=== PATIENT | female | born 1955 | race Caucasian/White ===

== ENCOUNTER 2022-06-27 09:51 | Emergency (ER) | payer OTHER, SELFPAY ==
[2022-06-27 09:52] VITALS: BP 145/106; PULSE 116; RESP 16; TEMP 35.5; O2SAT 95; BMI 42.0
--- NOTE | 2022-06-27 10:19 | EKG12_ITS ---
Test Reason : PALP Blood Pressure : / mmHG Vent. Rate : 128 BPM Atrial Rate : 000 BPM P-R Int : 000 ms QRS Dur : 088 ms QT Int : 326 ms P-R-T Axes : 000 041 -62 degrees QTc Int : 475 ms Atrial fibrillation with rapid ventricular response ST & T wave abnormality, consider inferior ischemia ST & T wave abnormality, consider anterior ischemia Abnormal ECG Confirmed by VICK ANNE, MICHAEL ([id number]), managing editor EVANS MACE ([id number]) on 06/28/2022 10:47:26 AM Referred By: Confirmed By:MICHAEL HICKMAN MD
--- NOTE | 2022-06-27 10:23 | EDS_ITS ---
HPI History of Present Illness Chief Complaint: Palpitations Informant: patient Narrative Narrative: See three 7-year-old female presenting to the emergency department with palpitations. She states that she received an alert from her Fitbit/phone that she was in atrial fibrillation with a rapid heart rate. She states that she feels weaker than normal. She denies any chest pain. Earlier this spring while visiting in [place] she was diagnosed with SVT and was given adenosine in the emergency department. She subsequently followed up with [place] [facility] and reportedly had an echocardiogram that was negative. She states she has not had any cardiac symptoms since that time. She notes that she has a history of hypothyroidism and is on Synthroid and also takes atenolol. Per chart biopsy she is also on Xarelto but she does not believe she is taking this or knows why that would be in her chart. PFSH [facility] Home Medications ascorbic acid (vitamin C) 500 mg tablet (Vitamin C) 500 mg PO DAILY@0800 08/21/14 [History Last Taken Unknown] atenolol 50 mg tablet 50 mg PO DAILY 08/21/14 [History Last Taken 09/27/14 07:00] biotin 5 mg capsule 5 mg PO DAILY 08/21/14 [History Last Taken Unknown] calcium citrate 200 mg calcium-vitamin D3 6.25 mcg (250 unit) tablet 1 ea PO DAILY 08/21/14 [History Last Taken Unknown] cyanocobalamin (vitamin B-12) 500 mcg disintegrating tablet,sublingual 500 mcg sublingual DAILY 08/21/14 [History Last Taken Unknown] ergocalciferol (vitamin D2) 1,250 mcg (50,000 unit) capsule (Vitamin D2) 50,000 unit PO 08/21/14 [History Last Taken Unknown] gabapentin 600 mg tablet 600 mg PO TIDCM 08/21/14 [History Last Taken Unknown] levothyroxine 75 mcg tablet (Levoxyl) 75 mcg PO DAILY 08/21/14 [History Last Taken Unknown] multivitamin with folic acid 400 mcg tablet (Thera) 1 tab PO DAILY 08/21/14 [History Last Taken Unknown] Allergy/AdvReac Type Severity Reaction Status Date / Time ciprofloxacin [From Cipro] Allergy Rash Verified 06/27/22 09:52 Social History (Updated 06/27/22 @ 10:[address] Ming Mariscal, DO) Smoking Status: Former smoker substance use type: does not use ROS ROS ED ROS Narrative Generalized weakness Constitutional Constitutional ED: Denies chills or weight loss Eyes Eyes: Denies change in vision or diplopia ENT ENT ED: Denies ear pain, rhinorrhea or sore throat Cardiovascular Cardiovascular: Reports palpitations; Denies chest pain, orthopnea or racing heartbeat Respiratory/Chest Respiratory/Chest: Denies cough, dyspnea or orthopnea Gastrointestinal Gastrointestinal: Denies abdominal pain, diarrhea, nausea or vomiting Genitourinary Genitourinary ED: Denies dysuria, hematuria or urinary frequency Musculoskeletal Musculoskeletal: Denies arthralgias or myalgias Integumentary Denies abscess or rash Neurologic Neurologic: Denies headache(s) or weakness Psychiatric Psychiatric: Denies anxiety, depression, suicidal ideation or suicidal thoughts Endocrine Endocrinology: Denies polydipsia, polyphagia or polyuria Allergic/Immunologic Allergic/Immunologic ED: Denies mouth swelling, tongue swelling or urticaria EXAM Physical Exam Const Vital Signs: 06/27/22 09:52 06/27/22 10:43 06/27/22 10:43 Temperature 96 F L Temperature Source Temporal Pulse Rate 116 H 93 Respiratory Rate 16 19 H Respiratory Effort Short of Breath Blood Pressure 145/106 H 137/88 H Blood Pressure Mean 119 104 Pulse Ox 95 95 Oxygen Delivery Method Room Air Room Air Positive well nourished and well developed General Appearance ED: well developed HEENT Reports normocephalic, head/scalp atraumatic and moist mucous membranes Eyes PERRL and EOMs intact bilaterally Neck no lymphadenopathy, supple and no JVD Resp normal respiratory effort and clear to auscultation bilaterally Cardio no murmurs Rate: tachycardic Rhythm: abnormal rhythm irregularly irregular GI normal to inspection, nondistended, normoactive bowel sounds and non-tender Palpation: soft Back/Spine no CVA tenderness and normal ROM Extremity normal to inspection General Extremety ED: Negative for edema General Extremity: Negative for edema Neuro oriented x3 and CN's II-XII intact bilaterally Sensorium / Orientation: alert Motor Exam: strength 5/5 throughout Psych mental status grossly normal Mood & Affect: Negative for depressed or tearful Skin no rashes or lesions noted and no wounds MDM MDM MDM Narrative Medical decision making narrative: Basic blood work was obtained. White count 10.4 with a hemoglobin 12.6 and platelet count of 246. Coags were normal. Troponin is 5 TSH 0.73. Magnesium 2.1 with a potassium of 3.9. My interpretation of the chest x-ray is no acute process. Patient received a dose of Lovenox aspirin as well as diltiazem. Patient's current heart rate is in the 80s and is normotensive. She remains in a atrial fibrillation rhythm but rate controlled. I spoke with our on-call merchant [employer] utility worker Dr. Gage. Patient will be seen in the office at 1445 hrs. today. It is approximately 2 and half hours from now. Patient is comfortable with this plan. Lab Data Attestation: I reviewed the patient's lab results. Labs: Laboratory Results - last 24 hr 06/27/22 06/27/22 06/27/22 10:00 10:00 10:00 WBC 10.4 RBC 4.55 Hgb 12.6 Hct 38.6 MCV 84.8 MCH 27.7 MCHC 32.6 RDW Std Deviation 45.7 H RDW Coeff of Wolfgang 14.9 H Plt Count 246 MPV 10.5 Immature Gran % (Auto) 0.400 Neut % (Auto) 73.9 H Lymph % (Auto) 15.7 L [place] % (Auto) 7.8 Eos % (Auto) 1.7 Baso % (Auto) 0.5 Absolute Neuts (auto) 7.6 Absolute Lymphs (auto) 1.63 Nucleated RBC % 0 PT 13.9 INR 1.1 APTT 26.9 Sodium 138 Potassium 3.9 Chloride 106 Carbon Dioxide 26.0 Anion Gap 6 BUN 13 Creatinine 0.91 Estim Creat Clear Calc 65.76 Est GFR (MDRD) Af Amer 79 Est GFR (MDRD) Non-Af 66 BUN/Creatinine Ratio 14.3 Glucose 127 H Calcium 9.2 Magnesium 2.1 Total Bilirubin 0.90 AST 17 ALT 16 Alkaline Phosphatase 117 Troponin I High Sens 5 Total Protein 8.2 Albumin 3.5 Globulin 4.7 H Albumin/Globulin Ratio 0.7 L TSH 0.73 Radiography Diagnostic Testing: Clinical Impression(s) from Imaging Studies Chest X-Ray 06/27/22 10:30 IMPRESSION: Diffuse patchy infiltrates right lung. Electronically Signed: Isaias Pozo MD, GAB at 10:41 EDT , EKG Initial EKG: Attestation: I personally reviewed and interpreted this EKG as follows: Comments: Atrial fibrillation with rapid ventricular response at a rate of 128 bpm Discharge Plan Triage Chief Complaint: Palpitations ED Provider: Ming Mariscal Dx/Rx/DC Orders Clinical Impression: New onset atrial fibrillation, Hypertension, Hypothyroidism Instructions: ED AFIB Prescriptions: No Action gabapentin 600 MG tablet 600 mg PO TIDCM Label Comments: nerve pain biotin 5 MG capsule 5 mg PO DAILY Label Comments: supplement levothyroxine [Levoxyl] 75 MCG tablet 75 mcg PO DAILY Label Comments: thyroid med ascorbic acid (vitamin C) [Vitamin C] 500 MG tablet 500 mg PO DAILY@0800 Label Comments: supplement ergocalciferol (vitamin D2) [Vitamin D2] 50,000 UNIT capsule 50,000 unit PO TUWE Label Comments: supplement atenolol 50 MG tablet 50 mg PO DAILY Label Comments: high blood pressure calcium citrate-vitamin D3 1 EACH tablet 1 ea PO DAILY Label Comments: supplement multivitamin with folic acid [Thera] 1 TABLET tablet 1 tab PO DAILY Label Comments: supplement cyanocobalamin (vitamin B-12) 500 MCG tablet,disintegrating 500 mcg sublingual DAILY Label Comments: supplement Primary Care Provider: Raquel June Referrals: Ben Gage MD [Med Staff - Active Staff] - As soon as possible (Today at 1445 hrs. you have an appointment with cardiology) Francesco Lovelace MD [Non-Staff] - Disposition Disposition: Home, Self Care
--- NOTE | 2022-06-27 10:30 | RAD_ITS ---
STUDY: X-RAY CHEST REASON FOR EXAM: Female, 67 years old. palpitations TECHNIQUE: PA or AP. COMPARISON: 08/21/2014. FINDINGS: Previously visualized focal right middle lobe infiltrate has resolved. There is now diffuse patchy infiltrate throughout the right lung. Left lung is clear. There is no demonstrated pleural abnormality. Normal size heart. Normal mediastinum and amanda. Normal visualized pulmonary arteries. Atherosclerotic vascular calcification of aortic arch. Tortuous descending aorta. Normal visualized thoracic spine. Normal visualized ribs, clavicles, and shoulders. There is no demonstrated abnormality of the visualized soft tissue structures of the upper abdomen. RAD/Chest 1 View (Portable) IMPRESSION: Diffuse patchy infiltrates right lung. Electronically Signed: Isaias Pozo MD, GAB at 10:41 EDT ,
[2022-06-27 10:31] LABS: Absolute Lymphocyte Count 1.63 X10^3/uL (0.83-4.51); Absolute Neutrophil Count 7.6 X10^3/uL (2.0-7.7); Basophil# 0.05 X10^3/uL; Basophil% 0.5 % (0-1); Eosinophil# 0.18 X10^3/uL; Eosinophils% 1.7 % (0-5); Hematocrit 38.6 % (37-47); Hemoglobin 12.6 g/dL (12.0-15.0); Lymphocyte # 1.63 X10^3/ul (0.83-4.51); Lymphocyte % 15.7 % (19-41); Mean Corp Hgb Conc 32.6 g/dL (32-36); Mean Corpuscular Hgb 27.7 pg (27.0-32.0); Mean Corpuscular Volume 84.8 fL (81-99); Mean Platelet Vol. 10.5 fl (6.2-12.0); Monocyte# 0.81 X10^3/uL; Monocyte% 7.8 % (0-10); NRBC Flagged by Analyzer 0 % (0-5); Neutrophil # 7.64 X10^3/uL (2.7-7.7); Neutrophil % 73.9 % (47-70); Platelet Count 246 K/mm3 (150-450); RBC Distribution Width CV 14.9 % (11.6-14.6); RBC Distribution Width SD 45.7 fl (35.1-43.9); Red Blood Count 4.55 M/mm3 (4.2-5.4); White Blood Count 10.4 K/mm3 (4.4-11.0)
[2022-06-27] MEDS: Aspirin 325 MG Tablet PO (10:39)
[2022-06-27] MEDS: dilTIAZem 25 MG/5 ML Vial 10 MG IV BOLUS (10:39)
[2022-06-27 10:40] LABS: International Normalized Ratio 1.1; Partial Thromboplast Time 26.9 Seconds (24.1-36.2); Prothrombin Time (Protime)PT. 13.9 SECONDS (11.7-14.9)
[2022-06-27 10:43] VITALS: BP 137/88; PULSE 93; RESP 19; O2SAT 95
[2022-06-27 10:55] LABS: ALB/GLOB Ratio 0.7 RATIO (0.9-2.4); AST(SGOT) 17 U/L (15-37); Alanine Aminotransfer ALT/SGPT 16 U/L (13-56); Albumin, Serum 3.5 g/dL (3.2-5.0); Alkaline Phosphatase 117 U/L (45-117); Anion Gap 6 (5-15); BUN 13 mg/dL (7-18); BUN/Creat Ratio 14.3 RATIO (10-20); Calcium,Total 9.2 mg/dL (8.5-10.1); Chloride 106 mmol/L (98-107); Creatinine, Serum 0.91 mg/dL (0.55-1.02); EST Glomerular Filtration Rate 66 mL/min (>60); Est Glom Filt Rate - Afr Amer 79 mL/min (>60); Estimated Creatinine Clearance 65.76 ml/min; Globulin 4.7 g/dL (2.2-4.2); Glucose 127 mg/dL (74-106); Magnesium 2.1 mg/dL (1.6-2.6); Potassium 3.9 mmol/L (3.5-5.1); Protein, Total 8.2 g/dL (6.4-8.2); Sodium Level 138 mmol/L (136-145); Thyroid Stim Hormone (TSH) 0.73 uIU/mL (0.358-3.74); Troponin-I HS 5 pg/mL (3.0-54.0)
[2022-06-27] MEDS: Enoxaparin 120 MG/0.8 ML Syringe SC (11:12)
[2022-06-27 12:17] VITALS: BP 108/73
== END 2022-06-27 12:18 | disposition home or self-care (01) ==
PROVIDERS: Emergency Provider Emergency Medicine; PCP Physician Assistant; Visit Provider Emergency Medicine
DX: I48.91 Unspecified atrial fibrillation (principal); I47.1 Supraventricular tachycardia; R00.2 Palpitations; I10 Essential (primary) hypertension; E03.9 Hypothyroidism, unspecified; Z87.891 Personal history of nicotine dependence
CPT/HCPCS: 71045; 80053; 83735; 84443; 84484; 85025; 85610; 85730; 93005; 96372; 96374; 99284; A4216

== ENCOUNTER → 2022-10-02 | Outpatient (CLI) | payer OTHER, SELFPAY ==
--- NOTE | 2022-10-02 17:08 | STRESSREP ---
Stress Test Report Pharmacologic myocardial perfusion stress test. 67-year-old lady with a history of chest pain Resting EKG demonstrates sinus rhythm with a rate of 62 bpm. Resting blood pressure is 138/78 mmHg. 0.4 mg of regadenoson was infused per usual protocol followed by rapid intravenous saline flush injection. Continuous EKG monitoring was performed. The maximum heart rate was 96 bpm which was 62% of max impacted heart rate the maximum workload was 1 metabolic equivalent. At rest there were no ST or T wave changes noted to suggest ischemia and at peak infusion nonspecific ST changes were noted which did not meet the criteria for ischemia. No clinical angina is noted. The final blood pressure was 132/74 mmHg. Myocardial perfusion protocol. 14.8 mCi of technetium 99m sestamibi was injected at rest. 0.4 mg of regadenoson was infused per usual protocol. At peak infusion 44.7 mCi of technetium 99m sestamibi was injected stress images were obtained stress and rest images were reconstructed and compared in the short axis vertical long and horizontal long axis. Gated images were also obtained. Perfusion SPECT analysis: Review of the stress images demonstrate normal uptake of tracer noted in all areas of the myocardium. The resting images similar demonstrated normal uptake of tracer noted in all areas of the myocardium. No areas of reversibility are noted to suggest ischemia and no previous infarct is noted. Gated SPECT analysis: The gated ejection fraction is 73%. Conclusion: Normal pharmacologic myocardial perfusion stress test. Preserved ejection fraction.
== END | disposition home or self-care (01) ==
PROVIDERS: PCP Physician Assistant; Visit Provider Physician Assistant Medical
DX: I48.0 Paroxysmal atrial fibrillation (principal)
CPT/HCPCS: 78452; 93017; A9500; A4216; J2785

== ENCOUNTER 2022-10-29 05:11 | Emergency (ER) | payer OTHER, SELFPAY ==
[2022-10-29 05:12] VITALS: BP 148/79; PULSE 74; RESP 14; TEMP 36.1; O2SAT 98; BMI 41.3
--- NOTE | 2022-10-29 05:29 | EKG12_ITS ---
Test Reason : DYSRYTHMIA Blood Pressure : / mmHG Vent. Rate : 068 BPM Atrial Rate : 068 BPM P-R Int : 140 ms QRS Dur : 088 ms QT Int : 394 ms P-R-T Axes : 039 049 025 degrees QTc Int : 418 ms Normal sinus rhythm Normal ECG Confirmed by CLAUDY ANNE, YFN ([id number]), order editor EVANS MACE ([id number]) on 10/30/2022 9:47:23 AM Referred By: NACHO Confirmed By:YFN LOCO MD
--- NOTE | 2022-10-29 05:37 | EX.ED.DYSGE1 ---
HPI History of Present Illness Chief Complaint: Palpitations Informant: patient Narrative Narrative: Patient presents stating that she felt her heart rate may have been a little irregular and possibly fast. She had no chest pain nausea vomiting shortness of breath. Her symptoms are really gone now. She has not yet taken her apixaban or atenolol that she would have taken about 5 AM. She states her Fitbit was telling her that she might be in atrial fibrillation. I looked at the reading and it was listing heart rates anywhere between about 48 and 140. It said possible atrial fibrillation. But at no time did give a heart rate. It always gave that set of numbers as the range that it was picking up. Therefore I do not know if her heart was actually tachycardic, bradycardic or normal rate. She does have a history of atrial fibrillation. She has also had SVT before. She is on Eliquis and takes it regularly except has not yet taken it this morning. She first denied ever having been cardioverted but then it sounds like she may have been cardioverted versus adenosine treatment for SVT in the past. I did review outpatient records from [facility] that showed a relatively normal echocardiogram with preserved ejection fraction. She had a normal pharmacologic myocardial perfusion stress test this September. [facility] Medical History Essential hypertension Obesity PAF (paroxysmal atrial fibrillation) Paroxysmal supraventricular tachycardia Home Medications ascorbic acid (vitamin C) 500 mg tablet (Vitamin C) 500 mg PO DAILY@0800 08/21/14 [History Last Taken Unknown] calcium citrate 200 mg calcium-vitamin D3 6.25 mcg (250 unit) tablet 1 ea PO DAILY 08/21/14 [History Last Taken Unknown] levothyroxine 75 mcg tablet (Levoxyl) 75 mcg PO DAILY 08/21/14 [History Last Taken Unknown] multivitamin with folic acid 400 mcg tablet (Thera) 1 tab PO DAILY 08/21/14 [History Last Taken Unknown] apixaban 5 mg tablet (Eliquis) 5 mg PO BID #180 tabs 07/03/22 [Rx Last Taken Unknown] atenolol 50 mg tablet 50 mg PO BID #180 tabs 08/23/22 [Rx Last Taken Unknown] ergocalciferol (vitamin D2) 1,250 mcg (50,000 unit) capsule (Vitamin D2) 50,000 unit PO 09/24/22 [History Last Taken Unknown] gabapentin 600 mg tablet 800 mg PO TIDCM 09/24/22 [History Last Taken Unknown] magnesium oxide 400 mg PO DAILY 09/24/22 [History Last Taken Unknown] Allergy/AdvReac Type Severity Reaction Status Date / Time ciprofloxacin [From Cipro] Allergy Rash Verified 09/24/22 10:42 Surgical History History of gastric bypass (2009) Social History Smoking Status: Never smoker substance use type: does not use ROS ROS ED Constitutional Constitutional ED: Denies chills or fever(s) ENT ENT ED: Denies rhinorrhea or sore throat Cardiovascular Cardiovascular: Reports palpitations and racing heartbeat; Denies chest pain Respiratory/Chest Respiratory/Chest: Denies cough or dyspnea Gastrointestinal Gastrointestinal: Denies melena, nausea or vomiting Genitourinary Genitourinary ED: Denies hematuria Musculoskeletal Musculoskeletal: Denies myalgias Neurologic Neurologic: Denies headache(s), paresthesias or weakness Endocrine Endocrinology: Denies polydipsia or polyuria Hematologic/Lymphatic Hematologic/Lymphatic: Reports easy bleeding and easy bruising Allergic/Immunologic Allergic/Immunologic ED: Denies urticaria EXAM Physical Exam Narrative Exam Narrative: Patient is awake alert sitting comfortably in bed. She carries on normal conversation. HEENT shows no sign of trauma. Mucous membranes are moist Neck shows no JVD Lungs are clear bilaterally and no pain with a deep breath. Heart is regular with a rate about 70-75. She has a lot of interference currently on the monitor and it is hard to tell if this is sinus. I do not see PVCs but again, the monitor is a little hard to interpret due to a lot of artifact. Peripheral pulses are equal and do seem normal and regular. Abdomen is soft and nontender shows no CVA or suprapubic tenderness Extremities show no edema or cords and she does have normal pulses. Neurologic she is awake alert appropriate. Const Vital Signs: 10/29/22 05:12 10/29/22 05:16 Temperature 96.9 F L Temperature Source Temporal Pulse Rate 74 Respiratory Rate 14 Respiratory Effort Normal Respiratory Pattern Normal Blood Pressure 148/79 H Blood Pressure Mean 102 Pulse Ox 98 MDM MDM MDM Narrative Medical decision making narrative: Patient CBC is normal other than minimal anemia which is not the cause of her symptoms. Her electrolytes showed no abnormalities of significance. Glucose and chloride were both minimally elevated. But her potassium was normal. Renal function was normal. Patient's magnesium was also normal at 2.0 I rechecked the patient. Her heart rate is about 60 and is in a normal sinus rhythm on the monitor. She is asymptomatic. She is on appropriate meds including anticoagulation. She feels back to baseline. I think she is okay for discharge and follow-up with her compensation and benefits advisor. Lab Data Attestation: I reviewed the patient's lab results. Labs: Laboratory Results - last 24 hr 10/29/22 10/29/22 05:34 05:34 WBC 6.2 RBC 4.11 L Hgb 11.3 L Hct 36.1 L MCV 87.8 MCH 27.5 MCHC 31.3 L RDW Std Deviation 45.1 H RDW Coeff of Wolfgang 14.0 Plt Count 231 MPV 10.6 Immature Gran % (Auto) 0.200 Neut % (Auto) 57.7 Lymph % (Auto) 27.2 [place] % (Auto) 11.6 H Eos % (Auto) 2.7 Baso % (Auto) 0.6 Absolute Neuts (auto) 3.6 Absolute Lymphs (auto) 1.69 Nucleated RBC % 0 Sodium 144 Potassium 4.2 Chloride 110 H Carbon Dioxide 27.0 Anion Gap 7 BUN 11 Creatinine 0.91 Estim Creat Clear Calc 65.76 Est GFR (MDRD) Af Amer 80 Est GFR (MDRD) Non-Af 66 BUN/Creatinine Ratio 12.1 Glucose 110 H Calcium 8.9 Magnesium 2.0 EKG Initial EKG: Comments: My independent interpretation of the patient's EKG shows a normal sinus rhythm with a rate at 68. No ventricular ectopy. No acute ST elevation or depression. No preexcitation. No indication of atrial fibrillation. Discharge Plan Triage Chief Complaint: Palpitations ED Provider: Zbigniew Diallo Dx/Rx/DC Orders Clinical Impression: PAF (paroxysmal atrial fibrillation), Heart palpitations Instructions: ED AFIB Prescriptions: No Action magnesium oxide 400 mg magnesium tablet 400 mg PO DAILY Rx Instructions: 2 times a week levothyroxine [Levoxyl] 75 MCG tablet 75 mcg PO DAILY Label Comments: thyroid med ascorbic acid (vitamin C) [Vitamin C] 500 MG tablet 500 mg PO DAILY@0800 Label Comments: supplement calcium citrate-vitamin D3 1 EACH tablet 1 ea PO DAILY Label Comments: supplement multivitamin with folic acid [Thera] 1 TABLET tablet 1 tab PO DAILY Label Comments: supplement gabapentin 600 mg tablet 800 mg PO TIDCM Label Comments: nerve pain ergocalciferol (vitamin D2) [Vitamin D2] 1,250 mcg (50,000 unit) capsule 50,000 unit PO WE Label Comments: supplement Rx Instructions: once a week Eliquis 5 mg tablet 5 mg PO BID Qty: 180 3RF atenolol 50 mg tablet 50 mg PO BID Qty: 180 3RF Stand Alone Forms: Work Status Form Primary Care Provider: Raquel June Referrals: Ben Gage MD [Med Staff - Active Staff] - 1 Week Raquel June PA [Primary Care Provider] - Disposition Disposition: Home, Self Care
[2022-10-29 05:46] LABS: Absolute Lymphocyte Count 1.69 X10^3/uL (0.83-4.51); Absolute Neutrophil Count 3.6 X10^3/uL (2.0-7.7); Basophil# 0.04 X10^3/uL; Basophil% 0.6 % (0-1); Eosinophil# 0.17 X10^3/uL; Eosinophils% 2.7 % (0-5); Hematocrit 36.1 % (37-47); Hemoglobin 11.3 g/dL (12.0-15.0); Lymphocyte # 1.69 X10^3/ul (0.83-4.51); Lymphocyte % 27.2 % (19-41); Mean Corp Hgb Conc 31.3 g/dL (32-36); Mean Corpuscular Hgb 27.5 pg (27.0-32.0); Mean Corpuscular Volume 87.8 fL (81-99); Mean Platelet Vol. 10.6 fl (6.2-12.0); Monocyte# 0.72 X10^3/uL; Monocyte% 11.6 % (0-10); NRBC Flagged by Analyzer 0 % (0-5); Neutrophil # 3.59 X10^3/uL (2.7-7.7); Neutrophil % 57.7 % (47-70); Platelet Count 231 K/mm3 (150-450); RBC Distribution Width SD 45.1 fl (35.1-43.9); Red Blood Count 4.11 M/mm3 (4.2-5.4); White Blood Count 6.2 K/mm3 (4.4-11.0)
[2022-10-29] MEDS: APIXABAN 5 MG TABLET PO (05:59)
[2022-10-29] MEDS: Atenolol 50 MG Tablet PO (05:59)
[2022-10-29 06:42] LABS: Anion Gap 7 (5-15); BUN 11 mg/dL (7-18); BUN/Creat Ratio 12.1 RATIO (10-20); Calcium,Total 8.9 mg/dL (8.5-10.1); Chloride 110 mmol/L (98-107); Creatinine, Serum 0.91 mg/dL (0.55-1.02); EST Glomerular Filtration Rate 66 mL/min (>60); Est Glom Filt Rate - Afr Amer 80 mL/min (>60); Estimated Creatinine Clearance 65.76 ml/min; Glucose 110 mg/dL (74-106); Potassium 4.2 mmol/L (3.5-5.1); Sodium Level 144 mmol/L (136-145)
[2022-10-29 07:03] VITALS: BP 132/81; PULSE 61; RESP 16; O2SAT 98
== END 2022-10-29 07:07 | disposition home or self-care (01) ==
PROVIDERS: Emergency Provider Emergency Medicine; PCP Physician Assistant; Visit Provider Emergency Medicine
DX: I48.0 Paroxysmal atrial fibrillation (principal); I10 Essential (primary) hypertension; Z79.01 Long term (current) use of anticoagulants
CPT/HCPCS: 80048; 83735; 85025; 93005; 96360; 99284; J7040

== ENCOUNTER → 2022-11-14 | Outpatient (CLI) | payer OTHER, SELFPAY | END | disposition home or self-care (01) | LOC: PSN 09:07 | PROVIDERS: PCP Physician Assistant; Referring Provider Physician Assistant Medical; Visit Provider Physician Assistant Medical | DX: I48.0 Paroxysmal atrial fibrillation (principal); I10 Essential (primary) hypertension | CPT/HCPCS: 93225; 93226 ==

== ENCOUNTER → 2023-03-14 | Outpatient (CLI) | payer OTHER, SELFPAY ==
[2023-03-14 11:12] LABS: Absolute Lymphocyte Count 1.24 X10^3/uL (0.83-4.51); Absolute Neutrophil Count 3.8 X10^3/uL (2.0-7.7); Basophil# 0.04 X10^3/uL; Basophil% 0.7 % (0-1); Eosinophils% 1.7 % (0-5); Hematocrit 35.6 % (37-47); Lymphocyte # 1.24 X10^3/ul (0.83-4.51); Lymphocyte % 21.5 % (19-41); Mean Corp Hgb Conc 30.9 g/dL (32-36); Mean Corpuscular Hgb 27.2 pg (27.0-32.0); Mean Corpuscular Volume 88.1 fL (81-99); Mean Platelet Vol. 11.6 fl (6.2-12.0); Monocyte# 0.55 X10^3/uL; Monocyte% 9.5 % (0-10); NRBC Flagged by Analyzer 0 % (0-5); Neutrophil # 3.83 X10^3/uL (2.7-7.7); Neutrophil % 66.4 % (47-70); Platelet Count 212 K/mm3 (150-450); RBC Distribution Width CV 15.6 % (11.6-14.6); RBC Distribution Width SD 50.4 fl (35.1-43.9); Red Blood Count 4.04 M/mm3 (4.2-5.4); White Blood Count 5.8 K/mm3 (4.4-11.0)
[2023-03-14 11:53] LABS: Anion Gap 7 (5-15); BUN 16 mg/dL (7-18); BUN/Creat Ratio 17.1 RATIO (10-20); Calcium,Total 9.1 mg/dL (8.5-10.1); Chloride 109 mmol/L (98-107); Creatinine, Serum 0.93 mg/dL (0.55-1.02); EST Glomerular Filtration Rate 64 mL/min (>60); Est Glom Filt Rate - Afr Amer 77 mL/min (>60); Glucose 105 mg/dL (74-106); Magnesium 2.1 mg/dL (1.6-2.6); Potassium 4.6 mmol/L (3.5-5.1); Sodium Level 144 mmol/L (136-145); Thyroid Stim Hormone (TSH) 1.14 uIU/mL (0.358-3.74)
== END | disposition home or self-care (01) ==
PROVIDERS: PCP Physician Assistant; Referring Provider Physician Assistant Medical; Visit Provider Physician Assistant Medical
DX: I48.0 Paroxysmal atrial fibrillation (principal); I47.1 Supraventricular tachycardia
CPT/HCPCS: 36415; 80048; 83735; 84443; 85025

== ENCOUNTER 2023-07-31 06:59 | Emergency (ER) | payer MEDICARE, OTHER, SELFPAY ==
[2023-07-31 07:02] VITALS: BP 136/73; PULSE 101; RESP 22; TEMP 36.1; O2SAT 96; BMI 39.1
[2023-07-31 07:04] VITALS: PULSE 109; RESP 21; O2SAT 96
--- NOTE | 2023-07-31 07:37 | EKG12_ITS ---
Test Reason : PALPS Blood Pressure : / mmHG Vent. Rate : 098 BPM Atrial Rate : 000 BPM P-R Int : 000 ms QRS Dur : 084 ms QT Int : 378 ms P-R-T Axes : 000 045 -22 degrees QTc Int : 482 ms Atrial fibrillation T wave abnormality, consider anterior ischemia Prolonged QT Abnormal ECG Confirmed by CLAUDY ANNE, YFN ([id number]), marketing editor EVANS MACE ([id number]) on 08/01/2023 10:46:53 AM Referred By: ZHENG Confirmed By:YFN LOCO MD
--- NOTE | 2023-07-31 07:38 | EDS_ITS ---
HPI History of Present Illness Chief Complaint: Palpitations Informant: patient and spouse/S.O. Narrative Narrative: Presents here significant other by EMS for concerns recurrent atrial fibrillation. Diagnosed 1.5 years ago on atenolol twice daily and Eliquis twice daily. She felt her rhythm go out yesterday. Today lightheaded with standing. No chest pain. She had revision of her gastric bypass 2 weeks ago at [facility] by Dr. Spence) electively for weight loss. Heart rate normally in the 50s. She did not take her morning medications she has been on her Eliquis postsurgery for past 2 weeks. No cough. No vomiting or diarrhea. Is been charbel vering well from her revision. Denies abdominal pain. Denies urinary symptoms. Prior similar symptoms: Yes PFSH [facility] Medical History Essential hypertension Obesity PAF (paroxysmal atrial fibrillation) Paroxysmal supraventricular tachycardia Home Medications ascorbic acid (vitamin C) 500 mg tablet (Vitamin C) 500 mg PO DAILY@0800 08/21/14 [History Last Taken Unknown] calcium citrate 200 mg calcium-vitamin D3 6.25 mcg (250 unit) tablet 1 ea PO DAILY 08/21/14 [History Last Taken Unknown] levothyroxine 75 mcg tablet (Levoxyl) 75 mcg PO DAILY 08/21/14 [History Last Taken Unknown] multivitamin with folic acid 400 mcg tablet (Thera) 1 tab PO DAILY 08/21/14 [History Last Taken Unknown] ergocalciferol (vitamin D2) 1,250 mcg (50,000 unit) capsule (Vitamin D2) 50,000 unit PO 09/24/22 [History Last Taken Unknown] gabapentin 600 mg tablet 800 mg PO TIDCM 09/24/22 [History Last Taken Unknown] magnesium oxide 400 mg PO DAILY 09/24/22 [History Last Taken Unknown] atenolol 50 mg tablet 75 mg (1.5 x 50 mg) PO BID #270 tabs 10/30/22 [Rx Last Taken Unknown] apixaban 5 mg tablet (Eliquis) See Rx Instructions .Route .COMPLEX #60 tabs 06/06/23 [Rx Last Taken Unknown] Allergy/AdvReac Type Severity Reaction Status Date / Time ciprofloxacin [From Cipro] Allergy Rash Verified 07/31/23 07:05 Surgical History History of gastric bypass (2010) Social History Smoking Status: Never smoker substance use type: does not use ROS ROS ED Constitutional Constitutional ED: Denies chills, fever(s) or sweats Eyes Eyes: Denies change in vision ENT ENT ED: Denies dysphagia or sore throat Cardiovascular Cardiovascular: Reports palpitations, racing heartbeat and other Details: Li ghtheaded ; Denies chest pain or leg edema Respiratory/Chest Respiratory/Chest: Denies cough, dyspnea or dyspnea on exertion Gastrointestinal Gastrointestinal: Denies abdominal pain, diarrhea, nausea or vomiting Genitourinary Genitourinary ED: Denies dysuria, hematuria or urinary frequency Musculoskeletal Musculoskeletal: Denies back pain, extremity pain or neck pain Integumentary Denies rash or wounds Neurologic Neurologic: Denies headache(s), paresthesias or weakness EXAM Physical Exam Const Vital Signs: 07/31/23 07:02 07/31/23 07:04 07/31/23 08:11 Temperature 97 F L Temperature Source Temporal Pulse Rate 101 H 109 H Pulse Rate [Lying] Pulse Rate [Sitting (for 1 minute prior to obtaining)] Pulse Rate [Standing (for 1 minute prior to obtaining)] Respiratory Rate 22 H 21 H Respiratory Effort Normal Non-Labored Blood Pressure 136/73 H Blood Pressure [Lying] Blood Pressure [Sitting (for 1 minute prior to obtaining)] Blood Pressure [Standing (for 1 minute prior to obtaining)] Blood Pressure Mean 94 Blood Pressure Mean [Lying] Blood Pressure Mean [Sitting (for 1 minute prior to obtaining)] Blood Pressure Mean [Standing (for 1 minute prior to obtaining)] Pulse Ox 96 96 Oxygen Delivery Method Room Air Room Air 07/31/23 08:47 07/31/23 12:21 Temperature Temperature Source Pulse Rate 82 Pulse Rate [Lying] 94 Pulse Rate [Sitting (for 1 minute prior to obtaining)] 97 Pulse Rate [Standing (for 1 minute prior to obtaining)] 153 H Respiratory Rate 16 Respiratory Effort Blood Pressure 103/61 Blood Pressure [Lying] 141/85 H Blood Pressure [Sitting (for 1 minute prior to obtaining)] 125/75 H Blood Pressure [Standing (for 1 minute prior to obtaining)] 105/77 Blood Pressure Mean 75 Blood Pressure Mean [Lying] 103 Blood Pressure Mean [Sitting (for 1 minute prior to obtaining)] 91 Blood Pressure Mean [Standing (for 1 minute prior to obtaining)] 86 Pulse Ox 97 Oxygen Delivery Method Positive well nourished and well developed General Appearance ED: well developed and NAD HEENT Reports moist mucous membranes normocephalic and atraumatic Eyes PERRL, EOMs intact bilaterally and conjunctivae normal General Eye ED: Yes normal appearance of both eyes Neck no lymphadenopathy and supple General: Negative for tenderness Chest Wall Chest: Negative for tenderness Resp normal respiratory effort and normal air movement Effort and Inspection: symmetric chest movement; Negative for respiratory distress Cardio regular rate and no murmurs Rhythm: abnormal rhythm Peripheral Pulses: pulses 2+ throughout GI normal to inspection, nondistended, normoactive bowel sounds and non-tender Palpation: Negative for guarding or rebound tenderness present Back/Spine no CVA tenderness and no thoracic nor lumbar tenderness Extremity normal to inspection General Extremety ED: Negative for edema or tenderness General Extremity: Negative for edema Neuro oriented x3 and no sensory deficits noted Sensorium / Orientation: awake and alert Skin no rashes or lesions noted and no wounds MDM MDM MDM Narrative Medical decision making narrative: Interventions / MDM: Differential diagnosis: Cardiac dysrhythmia, atrial fibrillation Diagnosis considered but do not suspect: N/A My EKG interpretation: Atrial fibrillation rate of 98, no ST changes T wave inversions anterior lateral leads. New T wave changes compared to March 2023. EKG #2: Sinus rate of 63, no ST or T wave changes, T wave version anterior leads. Imaging independently reviewed and interpreted by myself: N/A External documents reviewed: N/A Test considered but not ordered:N/A ED course: Patient EKG with A-fib. On the monitor heart rate 90s to 100s. EKG with T wave inversions however denies any chest pains. Blood pressure stable. Will check labs chest x-ray will give her morning dose of Eliquis at this time. 0850: Chest x-ray labs all stable. I stood her up she states felt palpitations lightheaded. Orthostatics were obtained and positive. Clinically is not dehydrated however will give IV fluids. She did report some mild shortness of breath, however with her recent surgery we will send for CT of the chest to rule out PE on anticoagulants. Addition I did discuss with cardiology Dr. Neely, recommends at this time given her morning atenolol and Cardizem IV of 20 mg. Patient agrees with the CT at this time. He did not want to cardiovert her as she is only mid back on for 2 weeks of her Eliquis. 1140: CTA chest negative for PE however noted groundglass changes. BRE sent for further evaluation. In the interim prior to medications given her heart rate seem to be in the high 80s blood pressure 110s, discussed with nursing, will hold on IV Cardizem and give her atenolol home dose. COVID return negative. On reevaluation on the monitor she felt better heart rate in the 60s appears sinus rhythm. Will repeat EKG. Repeat EKG is sinus rhythm. Symptoms improved. Heart rate back up to the 60s. Patient ambulated with no return of symptoms. Discharged outpatient follow-up with return precautions. She will continue her home medications. Re-evaluation: stable Disposition discussed with patient/family/significant other: Patient Case discussed with consulting clinician: Cardiology This note was generated with Lumific dictation software. It may contain incorrect words, spelling, and punctuation that were not noted in checking the note before signing. Lab Data Attestation: I reviewed the patient's lab results. Labs: Laboratory Results - last 24 hr 07/31/23 07:45 WBC 6.1 RBC 4.87 Hgb 14.6 Hct 44.4 MCV 91.2 MCH 30.0 MCHC 32.9 RDW Std Deviation 45.1 H RDW Coeff of Wolfgang 13.6 Plt Count 204 MPV 11.3 Immature Gran % (Auto) 0.300 Neut % (Auto) 69.6 Lymph % (Auto) 17.6 L Clayton % (Auto) 9.6 Eos % (Auto) 2.4 Baso % (Auto) 0.5 Absolute Neuts (auto) 4.3 Absolute Lymphs (auto) 1.08 Nucleated RBC % 0 Sodium 142 Potassium 3.8 Chloride 106 Carbon Dioxide 29.0 Anion Gap 7 BUN 16 Creatinine 0.91 Estim Creat Clear Calc 67.05 Est GFR (MDRD) Af Amer 80 Est GFR (MDRD) Non-Af 66 BUN/Creatinine Ratio 17.6 Glucose 111 H Calcium 9.5 Radiography Diagnostic Testing: Clinical Impression(s) from Imaging Studies Chest X-Ray 07/31/23 07:50 IMPRESSION: No radiographic evidence of acute cardiopulmonary disease. Electronically Signed: Heydi Doyle MD at 8:14 EST , Chest CTA 07/31/23 08:49 IMPRESSION: No demonstrated pulmonary embolism or arterial dissection. Scattered groundglass opacities may be secondary to edema and/or an infectious process. Atherosclerosis. Electronically Signed: Heydi Doyle MD at 9:30 EST , Discharge Plan Triage Chief Complaint: Palpitations ED Provider: Morgan Carrera Dx/Rx/DC Orders Clinical Impression: Palpitations, Orthostasis, PAF (paroxysmal atrial fibrillation) Instructions: ED AFIB Prescriptions: No Action magnesium oxide 400 mg magnesium tablet 400 mg PO DAILY Rx Instructions: 2 times a week atenolol 50 mg tablet 75 mg PO BID Qty: 270 3RF levothyroxine [Levoxyl] 75 MCG tablet 75 mcg PO DAILY Patient Comments: thyroid med ascorbic acid (vitamin C) [Vitamin C] 500 MG tablet 500 mg PO DAILY@0800 Patient Comments: supplement calcium citrate-vitamin D3 1 EACH tablet 1 ea PO DAILY Patient Comments: supplement multivitamin with folic acid [Thera] 1 TABLET tablet 1 tab PO DAILY Patient Comments: supplement gabapentin 600 mg tablet 800 mg PO TIDCM Patient Comments: nerve pain ergocalciferol (vitamin D2) [Vitamin D2] 1,250 mcg (50,000 unit) capsule 50,000 unit PO Patient Comments: supplement Rx Instructions: once a week Eliquis 5 mg tablet See Rx Instructions .ROUTE .COMPLEX Qty: 60 12RF Dose Instruction: TAKE 1 TABLET BY MOUTH TWICE A DAY Rx Instructions: TAKE 1 TABLET BY MOUTH TWICE A DAY Primary Care Provider: Raquel June Referrals: Ben Neely MD [Med Staff - Active Staff] - 1-2 Weeks Raquel June PA [Primary Care Provider] - Activity Restrictions/Additional Instructions: You are in atrial fibrillation now back to normal sinus rhythm. Continue your home dosing of Eliquis and atenolol. Your CTA chest was negative for PE with your recent surgery. Continue oral fluids for hydration. Follow-up with Dr. neely. Disposition Disposition: Home, Self Care Discharge Date/Time: 07/31/23 13:28
--- NOTE | 2023-07-31 07:50 | RAD_ITS ---
INDICATION: palpitations EXAMINATION/TECHNIQUE: X-RAY - XR Chest 1 View COMPARISON: June 27, 2022 FINDINGS: LINES/DEVICES: None. LUNGS: No consolidation, edema or effusion. No pneumothorax. MEDIASTINUM AND CARDIOVASCULAR STRUCTURES: Cardiac silhouette not enlarged. Central airways and mediastinal contour are unremarkable. BONES AND SOFT TISSUES: Unremarkable. RAD/Chest 1 View (Portable) IMPRESSION: No radiographic evidence of acute cardiopulmonary disease. Electronically Signed: Heydi Doyle MD at 8:14 EST ,
[2023-07-31 07:56] LABS: Absolute Lymphocyte Count 1.08 X10^3/uL (0.83-4.51); Absolute Neutrophil Count 4.3 X10^3/uL (2.0-7.7); Basophil# 0.03 X10^3/uL; Basophil% 0.5 % (0-1); Eosinophil# 0.15 X10^3/uL; Eosinophils% 2.4 % (0-5); Hematocrit 44.4 % (37-47); Hemoglobin 14.6 g/dL (12.0-15.0); Lymphocyte # 1.08 X10^3/ul (0.83-4.51); Lymphocyte % 17.6 % (19-41); Mean Corp Hgb Conc 32.9 g/dL (32-36); Mean Corpuscular Volume 91.2 fL (81-99); Mean Platelet Vol. 11.3 fl (6.2-12.0); Monocyte# 0.59 X10^3/uL; Monocyte% 9.6 % (0-10); NRBC Flagged by Analyzer 0 % (0-5); Neutrophil # 4.27 X10^3/uL (2.7-7.7); Neutrophil % 69.6 % (47-70); Platelet Count 204 K/mm3 (150-450); RBC Distribution Width CV 13.6 % (11.6-14.6); RBC Distribution Width SD 45.1 fl (35.1-43.9); Red Blood Count 4.87 M/mm3 (4.2-5.4); White Blood Count 6.1 K/mm3 (4.4-11.0)
[2023-07-31 08:05] LABS: Anion Gap 7 (5-15); BUN 16 mg/dL (7-18); BUN/Creat Ratio 17.6 RATIO (10-20); Calcium,Total 9.5 mg/dL (8.5-10.1); Chloride 106 mmol/L (98-107); Creatinine, Serum 0.91 mg/dL (0.55-1.02); EST Glomerular Filtration Rate 66 mL/min (>60); Est Glom Filt Rate - Afr Amer 80 mL/min (>60); Estimated Creatinine Clearance 67.05 ml/min; Glucose 111 mg/dL (74-106); Potassium 3.8 mmol/L (3.5-5.1); Sodium Level 142 mmol/L (136-145)
[2023-07-31] MEDS: APIXABAN 5 MG TABLET PO (08:16)
[2023-07-31 08:47] VITALS: BP 105/77; BP 125/75; BP 141/85; PULSE 153; PULSE 94; PULSE 97
--- NOTE | 2023-07-31 08:49 | CT_ITS ---
STUDY: CTA CHEST REASON FOR EXAM: Female, 68 years old. Dyspnea -- postop 2 weeks RADIATION DOSAGE (If Supplied By Facility): CTDIvol = ( 12.5 ) mGy, DLP = ( 460.33 ) mGycm TECHNIQUE: The examination was performed with the intravenous administration of IV 100mL Isovue-370. Post-processing of the angiographic images was performed, with multiplanar reformation and 3D reconstruction. Individualized dose optimization techniques were used for this CT. COMPARISON: Prior study dated: Chest radiograph dated August 21, 2014 and June 27, 2022 FINDINGS: Normal enhancement of the main pulmonary artery and right and left pulmonary arteries. Normal enhancement of the bilateral peripheral pulmonary arteries. There is no demonstrated pulmonary embolism. There is atherosclerotic calcification of the aortic arch. There is no demonstrated aortic dissection. There are calcifications of the coronary arteries. Normal mediastinum. Normal hilar regions. Normal visualized trachea and bronchi. There are scattered groundglass opacities in a somewhat mosaic pattern. There is no focal consolidation. There are no effusions. Normal chest wall structures. There are degenerative changes of the thoracic spine. There is a stable sclerotic focus within the right scapula suggestive of a bone island. Normal visualized upper abdomen. CT/CTA Chest W/WO Contrast IMPRESSION: No demonstrated pulmonary embolism or arterial dissection. Scattered groundglass opacities may be secondary to edema and/or an infectious process. Atherosclerosis. Electronically Signed: Heydi Doyle MD at 9:30 EST ,
[2023-07-31] MEDS: 0.9% Normal Saline (1000mL) 1,000 ML 999 ML IV (08:50)
[2023-07-31] MEDS: Atenolol 50 MG Tablet PO (10:53)
--- NOTE | 2023-07-31 11:44 | EKG12_ITS ---
Test Reason : REPEAT Blood Pressure : / mmHG Vent. Rate : 063 BPM Atrial Rate : 063 BPM P-R Int : 144 ms QRS Dur : 076 ms QT Int : 418 ms P-R-T Axes : 066 055 070 degrees QTc Int : 427 ms Normal sinus rhythm ST & T wave abnormality, consider anterior ischemia Abnormal ECG Confirmed by CLAUDY ANNE, YFN ([id number]), editor greeting card EVANS MACE ([id number]) on 08/01/2023 10:47:03 AM Referred By: ZHENG Confirmed By:YFN LOCO MD
[2023-07-31 12:21] VITALS: BP 103/61; PULSE 82; RESP 16; O2SAT 97
== END 2023-07-31 13:28 | disposition home or self-care (01) ==
PROVIDERS: Emergency Provider Emergency Medicine; PCP Physician Assistant; Visit Provider Emergency Medicine
DX: R00.2 Palpitations (principal); I48.0 Paroxysmal atrial fibrillation; I10 Essential (primary) hypertension; Z79.01 Long term (current) use of anticoagulants
CPT/HCPCS: 71045; 71275; 80048; 85025; 87428; 93005; 96360; 99285; J7030; Q9967; A4216

== ENCOUNTER 2023-08-29 10:17 | Outpatient (RCR) | payer MEDICARE, OTHER, SELFPAY ==
[2023-08-20 16:03] LABS: International Normalized Ratio 1.7
[2023-08-29 12:31] LABS: International Normalized Ratio 2.9; Prothrombin Time (Protime)PT. 30.5 SECONDS (11.7-14.9)
== END 2023-09-01 18:00 | disposition home or self-care (01) ==
LOC: MTLAB 10:17
PROVIDERS: Physician Assistant Medical; PCP Physician Assistant; Referring Provider Internal Medicine Cardiovascular Disease; Visit Provider Internal Medicine Cardiovascular Disease
DX: I48.0 Paroxysmal atrial fibrillation (principal); Z79.01 Long term (current) use of anticoagulants
CPT/HCPCS: 36415; 85610

== ENCOUNTER 2023-09-26 11:43 | Outpatient (RCR) | payer MEDICARE, OTHER, SELFPAY ==
[2023-09-12 11:46] LABS: International Normalized Ratio 3.2; Prothrombin Time (Protime)PT. 32.9 SECONDS (11.7-14.9)
[2023-09-26 15:55] LABS: International Normalized Ratio 1.3; Prothrombin Time (Protime)PT. 16.2 SECONDS (11.7-14.9)
== END 2023-09-26 18:00 | disposition home or self-care (01) ==
LOC: MTLAB 11:43
PROVIDERS: PCP Physician Assistant; Referring Provider Internal Medicine Cardiovascular Disease; Visit Provider Internal Medicine Cardiovascular Disease
DX: I48.0 Paroxysmal atrial fibrillation (principal); Z79.01 Long term (current) use of anticoagulants
CPT/HCPCS: 36415; 85610

== ENCOUNTER 2023-10-29 08:33 | Outpatient (RCR) | payer MEDICARE, OTHER, SELFPAY ==
[2023-10-03 16:36] LABS: International Normalized Ratio 1.3
[2023-10-14 12:58] LABS: Prothrombin Time (Protime)PT. 22.5 SECONDS (11.7-14.9)
[2023-10-29 10:30] LABS: International Normalized Ratio 1.7; Prothrombin Time (Protime)PT. 19.5 SECONDS (11.7-14.9)
== END 2023-10-31 18:00 | disposition home or self-care (01) ==
LOC: MTLAB 08:33
PROVIDERS: PCP Physician Assistant; Referring Provider Internal Medicine Cardiovascular Disease; Visit Provider Internal Medicine Cardiovascular Disease
DX: I48.0 Paroxysmal atrial fibrillation (principal); Z79.01 Long term (current) use of anticoagulants
CPT/HCPCS: 36415; 85610

== ENCOUNTER 2023-11-29 13:03 | Outpatient (RCR) | payer MEDICARE, OTHER, SELFPAY ==
[2023-11-05 10:31] LABS: International Normalized Ratio 1.6; Prothrombin Time (Protime)PT. 19.1 SECONDS (11.7-14.9)
[2023-11-13 12:33] LABS: International Normalized Ratio 1.4; Prothrombin Time (Protime)PT. 17.5 SECONDS (11.7-14.9)
[2023-11-22 12:01] LABS: International Normalized Ratio 1.6; Prothrombin Time (Protime)PT. 18.7 SECONDS (11.7-14.9)
[2023-11-29 15:31] LABS: International Normalized Ratio 2.4; Prothrombin Time (Protime)PT. 25.9 SECONDS (11.7-14.9)
== END 2023-12-01 02:08 | disposition home or self-care (01) ==
LOC: MTLAB 13:03
PROVIDERS: PCP Physician Assistant; Referring Provider Internal Medicine Cardiovascular Disease; Visit Provider Internal Medicine Cardiovascular Disease
DX: I48.0 Paroxysmal atrial fibrillation (principal); Z79.01 Long term (current) use of anticoagulants
CPT/HCPCS: 36415; 85610

== ENCOUNTER 2023-12-13 10:46 | Outpatient (RCR) | payer MEDICARE, OTHER, SELFPAY ==
[2023-12-13 12:32] LABS: International Normalized Ratio 2.2; Prothrombin Time (Protime)PT. 24.1 SECONDS (11.7-14.9)
== END 2023-12-31 22:07 | disposition home or self-care (01) ==
LOC: MTLAB 10:46
PROVIDERS: PCP Physician Assistant; Referring Provider Internal Medicine Cardiovascular Disease; Visit Provider Internal Medicine Cardiovascular Disease
DX: I48.0 Paroxysmal atrial fibrillation (principal); Z79.01 Long term (current) use of anticoagulants
CPT/HCPCS: 36415; 85610

== ENCOUNTER 2024-01-08 10:08 | Outpatient (RCR) | payer MEDICARE, OTHER, SELFPAY ==
[2024-01-08 12:18] LABS: International Normalized Ratio 2.1; Prothrombin Time (Protime)PT. 23.3 SECONDS (11.7-14.9)
== END 2024-01-08 18:00 | disposition home or self-care (01) ==
LOC: MTLAB 10:08
PROVIDERS: PCP Physician Assistant; Referring Provider Internal Medicine Cardiovascular Disease; Visit Provider Internal Medicine Cardiovascular Disease
DX: I48.0 Paroxysmal atrial fibrillation (principal); Z79.01 Long term (current) use of anticoagulants
CPT/HCPCS: 36415; 85610

== ENCOUNTER 2024-02-06 08:29 | Outpatient (RCR) | payer MEDICARE, OTHER, SELFPAY ==
[2024-02-06 10:34] LABS: International Normalized Ratio 2.5; Prothrombin Time (Protime)PT. 26.7 SECONDS (11.7-14.9)
== END 2024-02-06 18:00 | disposition home or self-care (01) ==
LOC: MTLAB 08:29
PROVIDERS: PCP Physician Assistant; Referring Provider Internal Medicine Cardiovascular Disease; Visit Provider Internal Medicine Cardiovascular Disease
DX: I48.0 Paroxysmal atrial fibrillation (principal); Z79.01 Long term (current) use of anticoagulants
CPT/HCPCS: 36415; 85610

== ENCOUNTER 2024-03-06 10:07 | Outpatient (RCR) | payer MEDICARE, OTHER, SELFPAY ==
[2024-03-06 12:15] LABS: International Normalized Ratio 2.2; Prothrombin Time (Protime)PT. 24.1 SECONDS (11.7-14.9)
== END 2024-04-01 18:00 | disposition home or self-care (01) ==
LOC: MTLAB 10:07
PROVIDERS: PCP Physician Assistant; Referring Provider Internal Medicine Cardiovascular Disease; Visit Provider Internal Medicine Cardiovascular Disease
DX: Z79.01 Long term (current) use of anticoagulants
CPT/HCPCS: 36415; 85610

== ENCOUNTER 2024-04-15 08:36 | Outpatient (RCR) | payer MEDICARE, OTHER, SELFPAY ==
[2024-04-08 12:31] LABS: International Normalized Ratio 3.3; Prothrombin Time (Protime)PT. 33.4 SECONDS (11.7-14.9)
[2024-04-15 10:17] LABS: International Normalized Ratio 2.7; Prothrombin Time (Protime)PT. 28.4 SECONDS (11.7-14.9)
== END 2024-04-15 18:00 | disposition home or self-care (01) ==
LOC: MTLAB 08:36
PROVIDERS: PCP Physician Assistant; Referring Provider Internal Medicine Cardiovascular Disease; Visit Provider Internal Medicine Cardiovascular Disease
DX: I48.0 Paroxysmal atrial fibrillation (principal); Z79.01 Long term (current) use of anticoagulants
CPT/HCPCS: 36415; 85610

== ENCOUNTER 2024-05-06 09:25 | Outpatient (RCR) | payer MEDICARE, OTHER, SELFPAY ==
[2024-05-06 12:30] LABS: International Normalized Ratio 2.6; Prothrombin Time (Protime)PT. 27.4 SECONDS (11.7-14.9)
== END 2024-05-06 18:00 | disposition home or self-care (01) ==
LOC: MTLAB 09:25
PROVIDERS: PCP Physician Assistant; Referring Provider Internal Medicine Cardiovascular Disease; Visit Provider Internal Medicine Cardiovascular Disease
DX: I48.0 Paroxysmal atrial fibrillation (principal); Z79.01 Long term (current) use of anticoagulants
CPT/HCPCS: 36415; 85610

== ENCOUNTER 2024-06-05 09:38 | Outpatient (RCR) | payer MEDICARE, OTHER, SELFPAY ==
[2024-06-05 10:37] LABS: International Normalized Ratio 2.6; Prothrombin Time (Protime)PT. 27.8 SECONDS (11.7-14.9)
== END 2024-06-05 18:00 | disposition home or self-care (01) ==
LOC: MTLAB 09:38
PROVIDERS: PCP Physician Assistant; Referring Provider Internal Medicine Cardiovascular Disease; Visit Provider Internal Medicine Cardiovascular Disease
DX: I48.0 Paroxysmal atrial fibrillation (principal); Z79.01 Long term (current) use of anticoagulants
CPT/HCPCS: 36415; 85610

== ENCOUNTER 2024-07-28 09:00 | Outpatient (RCR) | payer MEDICARE, OTHER, SELFPAY ==
[2024-07-07 10:33] LABS: International Normalized Ratio 2.3; Prothrombin Time (Protime)PT. 25.4 SECONDS (11.7-14.9)
[2024-07-28 10:12] LABS: International Normalized Ratio 1.2; Prothrombin Time (Protime)PT. 15.1 SECONDS (11.7-14.9)
== END 2024-08-01 18:00 | disposition home or self-care (01) ==
LOC: MTLAB 09:00
PROVIDERS: PCP Physician Assistant; Referring Provider Internal Medicine Cardiovascular Disease; Visit Provider Internal Medicine Cardiovascular Disease
DX: I48.0 Paroxysmal atrial fibrillation (principal); Z79.01 Long term (current) use of anticoagulants
CPT/HCPCS: 36415; 85610

== ENCOUNTER 2024-08-21 10:34 | Outpatient (RCR) | payer MEDICARE, OTHER, SELFPAY ==
[2024-08-06 12:16] LABS: International Normalized Ratio 1.6; Prothrombin Time (Protime)PT. 18.7 SECONDS (11.7-14.9)
[2024-08-21 12:24] LABS: International Normalized Ratio 2.9; Prothrombin Time (Protime)PT. 29.8 SECONDS (11.7-14.9)
== END 2024-08-21 18:00 | disposition home or self-care (01) ==
LOC: MTLAB 10:34
PROVIDERS: PCP Physician Assistant; Referring Provider Internal Medicine Cardiovascular Disease; Visit Provider Internal Medicine Cardiovascular Disease
DX: I48.0 Paroxysmal atrial fibrillation (principal); Z79.01 Long term (current) use of anticoagulants
CPT/HCPCS: 36415; 85610

== ENCOUNTER 2024-09-03 08:53 | Outpatient (RCR) | payer MEDICARE, OTHER, SELFPAY ==
[2024-09-03 10:46] LABS: International Normalized Ratio 2.5; Prothrombin Time (Protime)PT. 27.8 SECONDS (11.7-14.9)
== END 2024-09-03 18:00 | disposition home or self-care (01) ==
LOC: MTLAB 08:53
PROVIDERS: PCP Physician Assistant; Referring Provider Internal Medicine Cardiovascular Disease; Visit Provider Internal Medicine Cardiovascular Disease
DX: I48.0 Paroxysmal atrial fibrillation (principal); Z79.01 Long term (current) use of anticoagulants

== ENCOUNTER 2024-10-06 09:10 | Outpatient (RCR) | payer MEDICARE, OTHER, SELFPAY ==
[2024-10-06 10:19] LABS: International Normalized Ratio 2.4; Prothrombin Time (Protime)PT. 26.6 SECONDS (11.7-14.9)
== END 2024-10-30 18:00 | disposition home or self-care (01) ==
LOC: MTLAB 09:10
PROVIDERS: Physician Assistant Medical; PCP Physician Assistant; Referring Provider Internal Medicine Cardiovascular Disease; Visit Provider Internal Medicine Cardiovascular Disease
DX: I48.0 Paroxysmal atrial fibrillation (principal); Z79.01 Long term (current) use of anticoagulants
CPT/HCPCS: 36415; 85610

== ENCOUNTER 2024-11-24 08:04 | Outpatient (RCR) | payer MEDICARE, OTHER, SELFPAY ==
[2024-11-24 10:49] LABS: International Normalized Ratio 2.2; Prothrombin Time (Protime)PT. 24.7 SECONDS (11.7-14.9)
== END 2024-11-24 18:00 | disposition home or self-care (01) ==
LOC: MTLAB 08:04
PROVIDERS: PCP Physician Assistant; Referring Provider Internal Medicine Cardiovascular Disease; Visit Provider Internal Medicine Cardiovascular Disease
DX: I48.0 Paroxysmal atrial fibrillation (principal); Z79.01 Long term (current) use of anticoagulants
CPT/HCPCS: 36415; 85610

== ENCOUNTER 2025-01-13 10:00 | Outpatient (RCR) | payer MEDICARE, OTHER, SELFPAY ==
[2025-01-13 12:22] LABS: Prothrombin Time (Protime)PT. 31.8 SECONDS (11.7-14.9)
== END 2025-01-13 18:00 | disposition home or self-care (01) ==
LOC: MTLAB 10:00
PROVIDERS: PCP Physician Assistant; Referring Provider Internal Medicine Cardiovascular Disease; Visit Provider Internal Medicine Cardiovascular Disease
DX: I48.0 Paroxysmal atrial fibrillation (principal); Z79.01 Long term (current) use of anticoagulants
CPT/HCPCS: 36415; 85610

== ENCOUNTER 2025-02-09 08:11 | Outpatient (RCR) | payer MEDICARE, OTHER, SELFPAY ==
[2025-02-09 10:55] LABS: International Normalized Ratio 1.1; Prothrombin Time (Protime)PT. 14.9 SECONDS (11.7-14.9)
== END 2025-02-09 18:00 | disposition home or self-care (01) ==
LOC: MTLAB 08:11
PROVIDERS: PCP Physician Assistant; Referring Provider Internal Medicine Cardiovascular Disease; Visit Provider Internal Medicine Cardiovascular Disease
DX: I48.0 Paroxysmal atrial fibrillation (principal); Z79.01 Long term (current) use of anticoagulants
CPT/HCPCS: 36415; 85610

== ENCOUNTER 2025-03-10 09:46 | Outpatient (RCR) | payer MEDICARE, OTHER, SELFPAY ==
[2025-03-10 13:02] LABS: Prothrombin Time (Protime)PT. 28.0 SECONDS (11.7-14.9)
== END 2025-04-01 18:00 | disposition home or self-care (01) ==
LOC: MTLAB 09:46
PROVIDERS: PCP Registered Nurse; Referring Provider Internal Medicine Cardiovascular Disease; Visit Provider Internal Medicine Cardiovascular Disease
DX: I48.0 Paroxysmal atrial fibrillation (principal); Z79.01 Long term (current) use of anticoagulants
CPT/HCPCS: 36415; 85610

== ENCOUNTER 2025-04-21 11:00 | Outpatient (RCR) | payer MEDICARE, OTHER, SELFPAY ==
--- NOTE | 2025-02-25 07:42 | HP.PTEVAL ---
Patient's Visit Information Visit Information Visit Information: KIMBERLY BELTRAN is a 70 year old F referred to Physical Therapy by KARINE Marc with a diagnosis of Acute R shoulder pain. Date of Evaluation: 02/25/25 Physical Therapist: Jayy Murillo DPT Visit Plan Frequency: 2x /Week Duration: 4 Weeks Plan: 1) US to biceps region 2) DFM to biceps 3) AAROM R shoulder ROM 4) slow but progressive loading of biceps to increase remodeling 5) RTC strengthening. Subjective Subjective: Pt. is here today for her initial evaluation with diagnosis of acute R shoulder pain. Pt. reports no mech of injury. 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 Pt. thinks this may have caused it. 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 No N/T. History of B knee OA. Pt. reports no issues with sleeping. She does aquatic exercise well, except with lifting up. Difficulty with reaching behind her back. Pt. is hopeful to reduce symptoms in order to complete all ADLs and recreational gym exercises. Pain R shoulder: Pain Intensity (Out of 10): 2 Pain Intensity Range: 1 and 5 Objective Objective: POSTURE: Pt. has fwrd head posture and rounded shoulders. PALPATION: Pt. has some mild tenderness along bicipital groove and closer to short head of biceps. NEURO: Pt. has normal sensation and normal DTR throughout BUEs. ROM: AROM R shoulder: AROM: flexion 100deg increase NW, abd 90deg increase NW, functional IR L4 increase NW, functional ER C1 aberrant motion increase NW. L shoulder full ROM without increase in symptoms. PROM: R shoulder: flexion 135deg increase NW, abd 130deg increase NW, ER at 90deg of abd 90deg mild increase NW, IR at 90deg of abd 50deg mild increase NW. MMT: Pt. has 5/5 strength throughout BUEs. No myotomal weakness noted. + speeds, + horn blowers, - empty, slightly + belly press. with her testing I lean towards a biceps pathology vs RTC. Pt. RTC had good strength, bu marked pain with speeds testing. Pain with OH movements as well. Balance/Special Test Scores Quick DASH Score: 38.6350 Goals Goal 1:: LTG: Pt to be I with HEP. Goal Time Frame: 4-6 Weeks Goal 2:: STG: Pt. to have full AROM of R shoulder without increase in symptoms. Goal Time Frame: 2-4 Weeks Goal 3:: LTG: Pt. to have no pain with all ADLs and gym exercises. Goal Time Frame: 4-6 Weeks Goal 4:: LTG: pt. to have -speeds test. Goal Time Frame: 4-6 Weeks Rehabilitation Potential Physical Therapy Diagnosis: Pt. has signs and symptoms consistent with R shoulder pain. I tend to lean toward biceps pathology vs RTC. She has marked pain in her anterior shoulder pain and hypomobility. Rehabilitation Potential: Good Anticipated Interventions Patient/Client Instruction: Educate patient on: Condition, Plan of Care, Risk Factors and Benefits of Fitness Program For the Purpose of:: To decrease pain, To decrease swelling/inflammation, To increase ROM, To improve nutrient delivery to tissue, To increase oxygenation perfusion and To improve muscle performance and motor function Manual Therapy Techniques to Include: Mobilization Comment: DFM/IASTIM For the Purpose of:: To decrease pain, To decrease swelling/inflammation, To improve muscle performance and motor function, To decrease soft tissue restriction and To increase flexibility/ROM Ultrasound (thermal/non thermal): Yes For the Purpose of:: To decrease pain, To decrease swelling/inflammation, To increase ROM and To increase oxygenation perfusion Text: Thank you for the opportunity to evaluate your patient. For Medicare and Medicare HMO plans, please review the plan of care and approve it. It will need to be FAXED BACK to us at [phone] for Medicare purposes. For Medicare only, by signing this I certify the plan of care. Please let me know if there are questions or concerns regarding this plan of care. Physician Signature: Date:
--- NOTE | 2025-03-24 10:27 | HP.PTREVAL ---
Re-Evaluation Intro: Tess Banerjee, JETHRO-Henrietta, It has been my pleasure to treat KIMBERLY BELTRAN over the last 7 visits for Acute R shoulder pain. Please see the progress note below for an update on the physical therapy plan of care! Subjective Subjective: Pt. reports that her shoulder is doing better, but there is still movements that bother her. Pt. reports being 75-80% better overall. Objective Objective/Function: AROM: R shoulder flexion 155deg, abd 120deg, functional ER C3, functional IR L3 Pt. has increased pain with end ranges throughout. MMT: L shoulder: ER 15.8#, IR 17.8#, flex 12.0#, abd 17.4# R shoulder: ER 11.8#, IR 15.3#, flex 10.3#, abd 13.4# Pt. still has to reduce aquatic exercises due to pain with R shoulder. Pt. is doing the medium resistance with pool where previously she was doing more resistance. - speeds test today, slight discomfort, but no marked pain or weakness. Pt. is doing better, but is still having some anterior shoulder pain with reaching fwrd. Plan Plan Plan: I am recerting her for another 4 weeks. 1) US to biceps region progress away from US if doing better 2) DFM to biceps 3) AAROM R shoulder ROM 4) slow but progressive loading of biceps to increase remodeling 5) RTC strengthening. Balance/Gait/Functional tests Balance/Special Test Scores Quick DASH Score: 15.9075 Goals Goals Goal 1:: LTG: Pt to be I with HEP. Goal Time Frame: 4-6 Weeks Goal 2:: STG: Pt. to have full AROM of R shoulder without increase in symptoms. Goal Time Frame: 2-4 Weeks Goal Progress: Progressing Goal 3:: LTG: Pt. to have no pain with all ADLs and gym exercises. Goal Time Frame: 4-6 Weeks Goal Progress: Progressing Goal 4:: LTG: pt. to have -speeds test. Goal Time Frame: 4-6 Weeks Goal Progress: Goal Met Anticipated Interventions Anticipated Interventions Patient/Client Instruction: Educate patient on: Condition, Plan of Care, Risk Factors and Benefits of Fitness Program For the Purpose of:: To decrease pain, To decrease swelling/inflammation, To increase ROM, To improve nutrient delivery to tissue, To increase oxygenation perfusion and To improve muscle performance and motor function Manual Therapy Techniques to Include: Mobilization Comment: DFM/IASTIM For the Purpose of:: To decrease pain, To decrease swelling/inflammation, To improve muscle performance and motor function, To decrease soft tissue restriction and To increase flexibility/ROM Ultrasound (thermal/non thermal): Yes For the Purpose of:: To decrease pain, To decrease swelling/inflammation, To increase ROM and To increase oxygenation perfusion Re-Evaluation Ending Re-evaluation ending: Please do not hesitate to contact me at [phone] by phone or if you have questions or concerns regarding this new plan of care! Sincerely, HYACINTH FernandezT
--- NOTE | 2025-04-21 11:46 | HP.PTDCSUM ---
Discharge Summary D/C summary: It has been my pleasure to treat KIMBERLY BELTRAN referred by KARINE Marc, with the diagnosis of Acute R shoulder pain for a total of 15 visit(s). Discharge Date: 04/21/25 Please see the following information for a summary of their discharge status. Subjective Subjective: PT. reports being 90% better overall. Pt. reports being I with all HEP both in pool and on land. Pt. is sleeping well. She is back to driving. Pain R shoulder: Pain Intensity (Out of 10): 0 Overall Improvement % Improvement: 90 Objective Objective/Function: ROM: pt. has slight reduced R shoulder flexion MMT: Pt. has symmetrical strength between BUEs. Pt. -speeds test. PT. is overall doing much better. SHe is I with HEP and will be DC from PT at this point in time. Goals Goal 1:: LTG: Pt to be I with HEP. Goal Progress: Goal Met Goal 2:: STG: Pt. to have full AROM of R shoulder without increase in symptoms. Goal Progress: Goal Met Goal 3:: LTG: Pt. to have no pain with all ADLs and gym exercises. Goal Progress: Goal Met Goal 4:: LTG: pt. to have -speeds test. Goal Progress: Goal Met Plan Plan: Pt to be DC from PT at this point in time. Pt. has met all goals. D/C Information d/c sentence: If there are questions or concerns regarding this patient's physical therapy, please feel free to call me at [phone]. Thank you for the referral of this patient. Sincerely, Jayy Murillo, DPT Balance/Gait/Functional tests Balance/Special Test Scores Quick DASH Score: 6.8175 Improvement % Improvement: 90
== END 2025-04-21 19:00 | disposition home or self-care (01) ==
LOC: PT 11:00
PROVIDERS: PCP Registered Nurse; Referring Provider Registered Nurse; Visit Provider Registered Nurse
DX: M25.511 Pain in right shoulder (principal)
CPT/HCPCS: 97035; 97110; 97140; 97161; 97530

== ENCOUNTER 2025-05-25 07:57 | Outpatient (RCR) | payer MEDICARE, OTHER, SELFPAY ==
[2025-05-11 10:30] LABS: Prothrombin Time (Protime)PT. 20.6 SECONDS (11.7-14.9)
[2025-05-25 10:33] LABS: Prothrombin Time (Protime)PT. 23.5 SECONDS (11.7-14.9)
== END 2025-06-01 18:00 | disposition home or self-care (01) ==
LOC: MTLAB 07:57
PROVIDERS: PCP Registered Nurse; Referring Provider Internal Medicine Cardiovascular Disease; Visit Provider Internal Medicine Cardiovascular Disease
DX: I48.0 Paroxysmal atrial fibrillation (principal); Z79.01 Long term (current) use of anticoagulants
CPT/HCPCS: 36415; 85610

== ENCOUNTER 2025-06-22 08:20 | Outpatient (RCR) | payer MEDICARE, OTHER, SELFPAY ==
[2025-06-22 10:20] LABS: Prothrombin Time (Protime)PT. 24.1 SECONDS (11.7-14.9)
== END 2025-06-22 18:00 | disposition home or self-care (01) ==
LOC: MTLAB 08:20
PROVIDERS: PCP Registered Nurse; Referring Provider Internal Medicine Cardiovascular Disease; Visit Provider Internal Medicine Cardiovascular Disease
DX: I48.0 Paroxysmal atrial fibrillation (principal); Z79.01 Long term (current) use of anticoagulants
CPT/HCPCS: 36415; 85610